=== PATIENT | male | born 2005 | race Caucasian/White ===

== ENCOUNTER 2023-12-28 10:54 | Emergency (ER) | payer OTHER ==
[~2023-12-28] VITALS: Ht 172.7 cm; Wt 66.0 kg
[2023-12-28 10:55] VITALS: TEMP 98.1
[2023-12-28 12:11] LABS: BASO # 0.1 10^3/uL (0.0-0.2); BASO % 0.3 % (0.0-1.0); HEMATOCRIT 46.9 % (42.0-52.0); HEMOGLOBIN 15.5 g/dl (13.5-17.5); LYMPH # 2.5 10^3/uL (1.5-5.0); LYMPH % 15.5 % (24.0-44.0); MEAN CORPUSCULAR HEMOGLOBIN 28.8 pg (27.0-33.0); MONO # 0.8 10^3/uL (0.0-0.8); NEUTROPHILS # 12.6 10^3/uL (1.5-8.5); NEUTROPHILS % 78.4 % (36.0-66.0); PLATELET COUNT, AUTOMATED 249 10^3/uL (150-450); RED BLOOD COUNT 5.39 10^6/uL (4.30-6.10); WHITE BLOOD COUNT 16.1 10^3/uL (4.0-10.0)
[2023-12-28 12:20] LABS: INR 1.2; PROTHROMBIN TIME 14.9 SECONDS (12.5-14.5)
[2023-12-28 12:39] LABS: LIPASE 37 U/L (12-53)
[2023-12-28 12:40] LABS: CK-MB VALUE MASS 1.3 NG/ML (<3.6)
[2023-12-28 12:41] LABS: ALBUMIN 4.6 G/DL (3.2-5.2); ALKALINE PHOSPHATASE 74 U/L (46-116); ALT/SGPT 20 U/L (7.0-40); AST/SGOT 15 U/L (<34); BILIRUBIN,DIRECT 0.2 MG/DL (<0.4); BILIRUBIN,TOTAL 0.6 MG/DL (0.3-1.2); BLOOD UREA NITROGEN 17 MG/DL (9-23); CALCIUM LEVEL 9.4 MG/DL (8.5-10.1); CARBON DIOXIDE LEVEL 30 MMOL/L (20-31); CHLORIDE LEVEL 105 MMOL/L (98-107); CREATININE FOR GFR 1.19 MG/DL (0.70-1.30); GLUCOSE, FASTING 85 MG/DL (60-100); POTASSIUM SERUM 4.2 MMOL/L (3.5-5.1); SODIUM LEVEL 142 MMOL/L (136-145); TOTAL PROTEIN 7.4 G/DL (5.7-8.2)
[2023-12-28 12:45] LABS: CPK CREATINE PHOSPHOKINASE 209 U/L (46-171); MB/CK RELATIVE INDEX 0.62 (< OR =4)
[2023-12-28 13:22] LABS: ERYTHROCYTE SEDIMENTATION RATE 4 mm/hr (0-15)
[2023-12-28 13:43] LABS: CK-MB VALUE MASS 1.5 NG/ML (<3.6)
[2023-12-28 13:52] LABS: MB/CK RELATIVE INDEX 0.71 (< OR =4)
[2023-12-28] MEDS ORDERED: ISOVUE-370 76% 100ML VIAL As Ordered ONE (14:39)
[2023-12-28] MEDS: NS 1,000 ML IV ONE (14:40)
[2023-12-28 16:03] LABS: CK-MB VALUE MASS 1.2 NG/ML (<3.6)
[2023-12-28 16:04] LABS: MB/CK RELATIVE INDEX 0.58 (< OR =4)
[2023-12-28 16:40] LABS: C REACTIVE PROTEIN QUANTITATIV < 0.40 MG/DL (<1.0)
[2023-12-28 18:31] VITALS: O2SAT 99
[2023-12-28 22:16] VITALS: BP 111/60
[2023-12-28] MEDS ORDERED: HOLTER MONITOR XX (22:23)
== END 2023-12-28 22:31 | disposition home or self-care (01) ==
LOC: M ED 10:54
DX: R06.00 Dyspnea, unspecified (principal); R79.89 Other specified abnormal findings of blood chemistry
CPT/HCPCS: 36415; 71045; 71275; 80048; 80076; 82550; 82553; 83690; 84484; 85025; 85610; 85652; 86140; 93005; 93041; 93306; 94760; 99285; Q9967

== ENCOUNTER → 2023-12-29 | Outpatient (CLI) | payer OTHER ==
[~2023-12-29] MED LIST: HOLTER MONITOR XX
== END ==
LOC: M EKG 11:42
PROVIDERS: ATTEND Physician Assistant
DX: R00.2 Palpitations (principal)

== ENCOUNTER 2024-01-28 09:48 | Emergency (ER) | payer OTHER ==
[~2024-01-28] VITALS: Ht 172.7 cm; Wt 68.2 kg
[2024-01-28 10:31] LABS: BASO % 0.3 % (0.0-1.0); EOS % 0.4 % (0.0-3.0); HEMATOCRIT 44.8 % (42.0-52.0); HEMOGLOBIN 14.7 g/dl (13.5-17.5); LYMPH # 1.8 10^3/uL (1.5-5.0); LYMPH % 17.9 % (24.0-44.0); MEAN CORPUSCULAR HEMOGLOBIN 28.3 pg (27.0-33.0); MEAN CORPUSCULAR HGB CONC 32.8 g/dl (32.0-36.5); MEAN CORPUSCULAR VOLUME 86.3 fl (80.0-96.0); MONO # 0.7 10^3/uL (0.0-0.8); MONO % 6.7 % (2.0-8.0); NEUTROPHILS # 7.4 10^3/uL (1.5-8.5); NEUTROPHILS % 74.3 % (36.0-66.0); PLATELET COUNT, AUTOMATED 211 10^3/uL (150-450); RED BLOOD COUNT 5.19 10^6/uL (4.30-6.10)
[2024-01-28 11:00] LABS: ALBUMIN 4.2 G/DL (3.2-5.2); ALKALINE PHOSPHATASE 69 U/L (46-116); ALT/SGPT 19 U/L (7.0-40); AST/SGOT 12 U/L (<34); BILIRUBIN,DIRECT 0.2 MG/DL (<0.4); BILIRUBIN,TOTAL 0.6 MG/DL (0.3-1.2); BLOOD UREA NITROGEN 17 MG/DL (9-23); CALCIUM LEVEL 9.3 MG/DL (8.5-10.1); CARBON DIOXIDE LEVEL 29 MMOL/L (20-31); CHLORIDE LEVEL 107 MMOL/L (98-107); CK-MB VALUE MASS < 1.0 NG/ML (<3.6); CREATININE FOR GFR 0.98 MG/DL (0.70-1.30); GLUCOSE, FASTING 82 MG/DL (60-100); POTASSIUM SERUM 4.1 MMOL/L (3.5-5.1); SODIUM LEVEL 140 MMOL/L (136-145); TOTAL PROTEIN 6.8 G/DL (5.7-8.2)
[2024-01-28 11:07] LABS: CPK CREATINE PHOSPHOKINASE 123 U/L (46-171); MB/CK RELATIVE INDEX 0.81 (< OR =4)
[2024-01-28] MEDS ORDERED: ISOVUE-370 76% 100ML VIAL As Ordered ONE (12:28)
[2024-01-28] MEDS: KETOROLAC 30 MG/ML 1ML VIAL IV ONE (13:24)
[2024-01-28 14:23] VITALS: BP 118/68; TEMP 97.3; O2SAT 100
== END 2024-01-28 14:24 | disposition home or self-care (01) ==
LOC: M ED 09:48
DX: R06.02 Shortness of breath (principal); J45.909 Unspecified asthma, uncomplicated
CPT/HCPCS: 71046; 71275; 80048; 80076; 82550; 82553; 84484; 85025; 93005; 96374; 99284; J1885; Q9967

== ENCOUNTER 2025-05-16 11:23 | Emergency (ER) | payer OTHER ==
[~2025-05-16] VITALS: Ht 172.7 cm; Wt 66.0 kg
[2025-05-16] MEDS ORDERED: ONDA-282 PO (14:59)
[2025-05-16 15:08] VITALS: BP 132/76; TEMP 97.7; O2SAT 100
[2025-05-16] MEDS: IBUPROFEN 600 MG TAB PO ONE (15:09)
== END 2025-05-16 15:12 | disposition home or self-care (01) ==
LOC: M ED 11:23
DX: S09.90XA Unspecified injury of head, initial encounter (principal); W22.8XXA Striking against or struck by other objects, initial encounter; M25.561 Pain in right knee; Z79.899 Other long term (current) drug therapy; Y92.89 Other specified places as the place of occurrence of the external cause; Y93.89 Activity, other specified; Y99.0 Civilian activity done for income or pay